=== PATIENT | female | born 1950 | race Caucasian/White ===

== ENCOUNTER 2017-05-28 12:20 | Emergency (ER) | payer SELFPAY ==
--- NOTE | 2017-05-28 12:23 | PDOC ---
History of Present Illness - General Chief Complaint: Sore Throat Stated Complaint: SORE THROAT Time Seen by Provider: 05/28/17 12:23 - History of Present Illness Initial Comments: 05/28/17 13:19 66-year-old female history of hypertension and "palpitations", visiting from [place] presents to the emergency department with 2 days of sore throat. Patient denies any other associated symptoms of fever, cough, runny nose, chest pain, shortness of breath, nausea, vomiting, diarrhea. She denies sick contacts but was on the plane 4 days ago. Reports a history of strep throat one year ago that feels the same. Past History - Past Medical History Allergies/Adverse Reactions: Allergies Allergy/AdvReac Type Severity Reaction Status Date / Time No Known Allergies Allergy Verified 05/28/17 12:33 Home Medications: Ambulatory Orders Metoprolol Tartrate [Lopressor] 100 mg PO DAILY 05/28/17 Propranolol HCl 150 mg PO DAILY 05/28/17 Review of Systems - Review of Systems Comments:: 05/28/17 13:20 GENERAL/CONSTITUTIONAL: No fever or chills. No weakness. HEAD, EYES, EARS, NOSE AND THROAT: No change in vision. No ear pain or discharge. +sore throat. GASTROINTESTINAL: No nausea, vomiting, diarrhea or constipation. GENITOURINARY: No dysuria, frequency, or change in urination. CARDIOVASCULAR: No chest pain or shortness of breath. RESPIRATORY: No cough, wheezing, or hemoptysis. MUSCULOSKELETAL: No joint or muscle swelling or pain. No neck or back pain. SKIN: No rash NEUROLOGIC: No headache, vertigo, loss of consciousness, or change in strength/ sensation. ENDOCRINE: No increased thirst. No abnormal weight change. HEMATOLOGIC/LYMPHATIC: No anemia, easy bleeding, or history of blood clots. ALLERGIC/IMMUNOLOGIC: No hives or skin allergy. *Physical Exam - Physical Exam Comments: 05/28/17 13:21 GENERAL: Awake, alert, and fully oriented, in no acute distress HEAD: No signs of trauma EYES: PERRLA, EOMI, sclera anicteric, conjunctiva clear ENT: Auricles normal inspection, hearing grossly normal, nares patent, R tonsil with edema, erythema and exudates. No evidence of [employer], no petechiae. Moist mucosa NECK: Normal ROM, supple, no lymphadenopathy, JVD, or masses LUNGS: Breath sounds equal, clear to auscultation bilaterally. No wheezes, and no crackles HEART: Regular rate and rhythm, normal S1 and S2, no murmurs, rubs or gallops ABDOMEN: Soft, nontender, normoactive bowel sounds. No guarding, no rebound. No masses EXTREMITIES: Normal range of motion, no edema. No clubbing or cyanosis. No cords, erythema, or tenderness NEUROLOGICAL: Normal speech, cranial nerves intact, negative pronator drift, 5/ 5 strength in all 4 extremities, normal sensation to light touch in all 4 extremities, normal cerebellar exam, normal gait, normal reflexes and tone SKIN: Warm, Dry, normal turgor, no rashes or lesions noted. Medical Decision Making - Medical Decision Making 05/28/17 13:21 66-year-old female presents with sore throat, rapid strep antigen is positive. Vitals with slightly low blood pressure, although patient reports his blood pressure is normal for her. Exam with right tonsillar swelling, redness and exudates but no evidence of airway occlusion or peritonsillar abscess consistent with strep pharyngitis. Patient would like to be treated with IM Bicillin. Antibiotics have been ordered and patient to be discharged. I discussed the physical exam findings, ancillary test results and final diagnoses with the patient. I answered all of the patient's questions. The patient was satisfied with the care received and felt comfortable with the discharge plan and treatment plan. The patient will call their primary care physician within 24 hours to arrange follow-up and will return to the Emergency Department with any new, persistent or worsening symptoms. *DC/Admit/Observation/Transfer Diagnosis at time of Disposition: Strep pharyngitis - Discharge Dispostion Disposition: HOME Condition at time of disposition: Stable Admit: No - Referrals - Patient Instructions Printed Discharge Instructions: Strep Throat Additional Instructions: You were diagnosed with strep throat in the emergency department. You were given 1 dose of intramuscular bicillin for treatment in the emergency department. Take Tylenol or Motrin as needed for pain. Return to the emergency department if you have any new, worsening or concerning symptoms. Print Language: PANAMANIAN - Post Discharge Activity - Attestations Physician Attestion: 05/28/17 13:24 I, Dr. Hilda Finney MD, attest that this document has been prepared under my direction and personally reviewed by me in its entirety. I further attest, that it accurately reflects all work, treatment, procedures and medical decision -making performed by me.
[2017-05-28 12:45] VITALS: BP 98/73; PULSE 73; TEMP 98.2; BMI 29.3
[2017-05-28] MEDS ORDERED: PENICILLIN G BENZATHINE 2,400,000 UNIT/4 ML PFS IM ONE (13:16)
[2017-05-28] MEDS ORDERED: PENICILLIN G BENZATHINE 1,200,000 UNIT/2 ML PFS IM ONE ×2 (13:19)
== END 2017-05-28 13:31 | disposition home or self-care (01) ==
LOC: FER 12:20
DX: J02.0 Streptococcal pharyngitis (principal)
CPT/HCPCS: 87070; 87077; 87430; 99282-25